=== PATIENT | female | born 1970 | race Caucasian/White ===

== ENCOUNTER 2025-06-03 17:18 | Emergency (ER) | payer BC ==
[2025-06-03] MEDS: fentaNYL 50 MCG/ML SDV IVPUSH ONE (18:25)
[2025-06-03] MEDS: fentaNYL 50 MCG/ML SDV IM ONE (18:54)
== END 2025-06-03 19:44 | disposition home or self-care (01) ==
LOC: JP.ED 17:18
DX: S62.511A Displaced fracture of proximal phalanx of right thumb, initial encounter for closed fracture (principal); W23.0XXA Caught, crushed, jammed, or pinched between moving objects, initial encounter
CPT/HCPCS: 73130; 96365; 96375; 99283; J0690; J3010